=== PATIENT | male | born 1950 | race Caucasian/White ===

== ENCOUNTER 2023-04-18 12:19 | Emergency (ER) | payer MEDICARE ==
[~2023-04-18] VITALS: Ht 170.2 cm; Wt 85.8 kg
[~2023-04-18 12:19] MED LIST: FLO0.4C PO; SIMV-42 PO; UPAD15TA PO
[2023-04-18 12:42] VITALS: BP 192/149; PULSE 60; TEMP 98; O2SAT 100
[2023-04-18] MEDS ORDERED: ondansetron 4mg rapidly disintigrating tab PO ONE (12:50)
[2023-04-18] MEDS ORDERED: ketorolac trometh. 30mg/ml inj. IM ONE (12:50)
[2023-04-18 13:29] VITALS: RESP 18
[2023-04-18] MEDS: ketorolac trometh. 30mg/ml inj. IV ONE (13:29)
[2023-04-18] MEDS: ondansetron/PF 4mg/2ml inj IV ONE (13:29)
[2023-04-18] MEDS: normal saline 1000ML IV soln IVB ONE (13:30)
[2023-04-18 13:48] LABS: BASOPHILS % (AUTO) 0.2 % (0-1); EOSINOPHILS % (AUTO) 0.6 % (0-6); HEMATOCRIT 43.7 % (42.0-52.0); HEMOGLOBIN 14.5 g/dl (14.0-17.9); LYMPHOCYTES # (AUTO) 1.5 X10'3 (1.1-4.8); LYMPHOCYTES % (AUTO) 18.5 % (21-51); MEAN CORPUSCULAR HEMOGLOBIN 30.2 PG (27.0-31.0); MEAN CORPUSCULAR HGB CONC 33.2 g/dL (33.0-36.5); MEAN CORPUSCULAR VOLUME 90.8 FL (78-98); MONOCYTES # (AUTO) 0.7 X10'3 (0-0.9); MONOCYTES % (AUTO) 8.1 % (2-12); NEUTROPHILS # (AUTO) 5.9 X10'3 (1.8-7.7); NEUTROPHILS % (AUTO) 72.6 % (42-75); PLATELET COUNT 243 X10'3 (140-440); RED BLOOD COUNT 4.82 X10'6 (4.70-6.10); RED CELL DISTRIBUTION WIDTH 15.5 % (11.5-14.5); WHITE BLOOD COUNT 8.1 X10'3 (4.5-11.0)
[2023-04-18 14:00] LABS: ANION GAP 11 (8-16); BLOOD UREA NITROGEN 18 MG/DL (7-18); BUN/CREATININE RATIO 16.5 (10.0-20.0); CALCIUM 8.4 MG/DL (8.5-10.1); CHLORIDE 103 MMOL/L (99-107); CREATININE 1.09 MG/DL (0.60-1.10); GLUCOSE 105 MG/DL (70-104); LIPASE 32 U/L (16-77); POTASSIUM 3.8 MMOL/L (3.5-5.1); SODIUM 138 MMOL/L (135-145); TOTAL CARBON DIOXIDE 24.2 MMOL/L (24-32); eCRCL 59 ML/MIN; eGFR 67 ML/MIN
[2023-04-18 14:36] LABS: BILIRUBIN,URINE NEGATIVE (Neg); CLARITY,URINE CLEAR (Clear); COLOR,URINE YELLOW (Yellow); GLUCOSE, URINE NEGATIVE (Neg); KETONES,URINE 15 mg/dl (Neg); LEUKOCYTE ESTERASE ,URINE NEGATIVE (Neg); NITRITES, URINE NEGATIVE (Neg); OCCULT BLOOD,URINE NEGATIVE (Neg); PROTEIN,URINE NEGATIVE (Neg); UROBILINOGEN,URINE 0.2 E.U/dL (0.2-1.0)
[2023-04-18 14:45] LABS: UA COLLECTION TYPE NON-SPECIFIED
== END 2023-04-18 14:51 ==
LOC: ER 12:19
DX: N23 Unspecified renal colic (principal); N40.0 Benign prostatic hyperplasia without lower urinary tract symptoms; Z79.899 Other long term (current) drug therapy
CPT/HCPCS: 36415; 74176; 80048; 81003; 83690; 85025; 96361; 96374; 96375; 99285; J1885; J2405; J7030

== ENCOUNTER 2024-10-20 14:55 | Outpatient (CLI) | payer MEDICARE ==
[~2024-10-20 14:55] MED LIST changes: -FLO0.4C PO; +TAMS-55 PO
--- NOTE | 2024-10-20 16:21 | RADIOLOGY REPORT ---
EXAM: CT CT LOWER EXTREMITY INDICATION: CT L KNEE W/O CONTRAST WITH DEPUY TRUE MATCH PATIENT MATCHED CUTTING BLOCKS TECHNIQUE: Axial images of left hip, knee, ankle have been obtained along with coronal and sagittal r eformatted images. All CT scans at this facility use dose modulation, iterative reconstruction, and/o r weight based dosing when appropriate to reduce radiation dose to as low as reasonably achievable. COMPARISON: None FINDINGS: BONES: No CT evidence of an acute fracture or aggressive osseous lesion. MUSCLES: No abnormal attenuation. JOINT SPACES: Small knee joint effusion. TENDONS/LIGAMENTS: Intact. OTHER: Vascular calcifications. IMPRESSION: 1. Successful CT surgical planning protocol 2. Small knee joint effusion.
== END 2024-10-20 23:59 | disposition home or self-care (01) ==
LOC: RAD 14:55
PROVIDERS: ATTEND Orthopaedic Surgery
DX: M17.12 Unilateral primary osteoarthritis, left knee (principal); M25.462 Effusion, left knee
CPT/HCPCS: 73700

== ENCOUNTER 2024-12-16 05:31 | Observation (INO) | payer MEDICARE ==
[2024-12-07 09:05] LABS: MEAN PLATELET VOLUME 7.9 FL (7.4-10.4); PRE OP HEMATOCRIT 41.8 % (42.0-52.0); PRE OP HEMOGLOBIN 13.9 g/dL (14.0-17.9); PRE OP PLATELET COUNT 307 X10'3 (140-440); PRE OP WHITE BLOOD COUNT 6.6 10'3 (4.8-10.8); RED CELL DISTRIBUTION WIDTH 15.0 % (11.5-14.5)
[2024-12-07 09:22] LABS: CREATININE 1.12 MG/DL (0.60-1.10); PRE OP ALT 16 U/L (30-65); PRE OP ANION GAP 8 (8-16); PRE OP AST 33 U/L (10-37); PRE OP BILIRUB, TOTAL 0.5 MG/DL (0.0-1.0); PRE OP GLUCOSE 100 MG/DL (70-104); PRE OP POTASSIUM 4.0 MMOL/L (3.4-5.1); PRE OP SODIUM 139 MMOL/L (135-145); TOTAL CARBON DIOXIDE 25.2 MMOL/L (24-32); eGFR 64 ML/MIN
[~2024-12-16] VITALS: Ht 170.2 cm; Wt 88.7 kg
[2024-12-16] VITALS (21 sets, daily range): BP systolic 107–148; BP diastolic 55–85; PULSE 53–96; RESP 9–17; TEMP 96.2–98.4; O2SAT 94–100
[~2024-12-16 05:31] MED LIST changes: +OMEP20CA16 PO
[2024-12-16] MEDS: ringers solution, lacted 1,000 ML IV SCH ×2 (06:40→23:44)
[2024-12-16] MEDS: ceFAZolin 2gm/dext,iso 50mL 50 ML IV ONE (06:40)
[2024-12-16] MEDS: VANCOMYCIN/H2O 1.5g/300mL PB 300 ML IV ONE (06:40)
[2024-12-16] MEDS: tranexamic acid 1gm/0.7% sal. 100 ML IV ONE (06:40)
[2024-12-16] MEDS ORDERED: vancomycin 1,000mg inj ONE (06:41)
[2024-12-16] MEDS ORDERED: tetracaine 1% (10mg/ml) pres. free inj. ONE (07:11)
[2024-12-16] MEDS ORDERED: BUPIVACAINE liposomal/PF 13.3 MG/ML 10mL vial IM ONE (07:11)
[2024-12-16] MEDS ORDERED: BUPIVAcaine/PF 5 mg/ml 10ml ONE (07:11)
[2024-12-16] MEDS ORDERED: MIDAZolam 1mg/ml 10ml vial ONE (07:13)
[2024-12-16] MEDS ORDERED: fentaNYL/PF 50MCG/1 ML 2ML syringe ONE (07:14)
[2024-12-16] MEDS ORDERED: labetalol 20mg/4ml (5mg/ml) syringe IV PRN (07:30)
[2024-12-16] MEDS ORDERED: fentaNYL/PF 50MCG/1 ML 2ML syringe IV PRN ×2 (07:30)
[2024-12-16] MEDS ORDERED: ROPIVAcaine 0.2% (10 MG/5 ML) BOLUS INJECTION ADDCANAL PRN (07:30)
[2024-12-16] MEDS ORDERED: ondansetron/PF 4mg/2ml inj IV PRN (07:30)
[2024-12-16] MEDS ORDERED: hydrALAZINE 20mg/ml inj. IV PRN (07:30)
[2024-12-16] MEDS ORDERED: morphine 4 MG/ML inj SYRINge IV PRN (07:30)
[2024-12-16] MEDS ORDERED: propofol inj 20 ML IV ONE ×3 (08:20)
--- NOTE | 2024-12-16 09:05 | ANESTHESIA RECORDS ---
Nerve Block Providers to CC CC: VANGIE PATEL MD ~ Diagnosis: Nerve Block requested by: VANGIE PATEL MD Neuraxial/Peripheral Nerve Block requested for Post-operative analgesia by Physician above DIAGNOSIS: Post-operative pain. (Body Area) Shoulder: [ ] Arm: [ ] Hand: [ ] Hip: [ ] Knee: [ Left ] Ankle: [ ] Foot: [ ] Leg: [ ] Abdomen: [ ] Other: [ ] Post-operative pain expected to be/is inadequately managed by oral or IV medicines. Regional anesthetic expected to facilitate rehabilitation and/or discharge from facility. Other:[ _] Procedure Performed: Femoral / Saphenous: Left Other: Left IPACK Time out Done?: Yes Time of Time out: 08:33 Procedure Details: PROCEDURE DETAILS: Risks, benefits and alternatives explained Informed consent obtained, and patient wishes to proceed Conscious sedation with indicated monitors Patient positioned, pertinent anatomy defined, sterile technique used Needle used: [ ] 3 1/8 inch Stimuplex Ultra 22ga [ ] 4 inch Stimuplex Ultra 20ga [X ] 6 inch Stimuplex Ultra 20ga [X ] 6 inch, Quikbloc over the needle catheter set 20ga [ ] 4 inch Quikbloc over the needle catheter set 20ga [ ]Other: [ ] Loss of twitch @ [ ]mA [X ] Single Injection [X ] Catheter Ultrasound Guidance Used: [X ] Yes [ ] No Attempts:[_1,1 ] Medicines injected: [ ]Clonidine Amt:[ ] [ ]Dexamethasone Amt:[ ] [ X ]Ropivacaine Amt:[_0.5% 30 c.c for adductor canal block ] [ X ]Bupivacaine Amt:[_0.5% 10 c.c for IPACK block ] [ ]Lidocaine Amt:[ ] [ X ]Exparel 1.33%:[_10 c.c for IPACK block ] [ ]Epinephrine Amt[ ] [ ]Other: [ ] Intermittent aspiration during local anesthetic administration No symptoms of intraneural or intravenous injection Patient tolerated procedure well Comments Left ADDUCTOR CANAL CATHETER PLACEMENT: Left mid medial thigh is examined with Ultrasound and Adductor canal and vessels are identified and catheter over needle is placed in the canal. Ropivacaine is injected,spread is noted. Needle is removed catheter is secured. Ultrasound images captured,documented. Sterile dressings applied. On Q pump ordered. IPACK Block: Left posterior thigh is examined at the level of Lt medial femoral condyle. Popliteal vessels, Posterior knee capsule identified. Needle is placed in between posterior knee capsule,and popliteal vessels. local mix of exaprel+bupevacaine is injected. spread i snted, Ultrasound image is captured,documented. RADHA BEAVERS MD Dec 16, 2024 09:05
[2024-12-16] MEDS ORDERED: ePHEDrine 50MG/ML INJ. ONE (09:36)
[2024-12-16] MEDS: morphine 10mg/ml inj. IU ONE (10:00)
[2024-12-16] MEDS: vancomycin 1,000mg inj OGT ONE (10:03)
[2024-12-16] MEDS ORDERED: hydrALAZINE 20mg/ml inj. ONE (10:09)
[2024-12-16] MEDS ORDERED: ROPIVAcaine 0.5% (5mg/ml) 30ml vial ONE (10:10)
[2024-12-16] MEDS ORDERED: bisacodyl 10mg suppository rectal RC PRN (11:00)
[2024-12-16] MEDS ORDERED: HYDROmorphone inj. 0.5 MG/0.5 ML DISP.SYRIN IV PRN (11:00)
[2024-12-16] MEDS ORDERED: magnesium hydroxide 30ml (MOM) UD suspension PO PRN (11:00)
[2024-12-16] MEDS ORDERED: oxyCODONE IR 5mg (immed. release) tablet PO PRN (11:00)
[2024-12-16] MEDS ORDERED: PCA WASTE DOCUMENTATION 1 MG ML MC SCH (11:00)
--- NOTE | 2024-12-16 11:23 | OPERATIVE REPORT ---
Operative Report Providers to ~ Date of Procedure: Dec 16, 2024 Pre-Operative Diagnosis: Tricompartmental degenerative joint disease left knee Post-Operative Diagnosis SAME as PRE-Op Procedure Performed Left total knee arthroplasty Press-Fit Surgeon: Vangie Patel MD Wind Energy Engineer Garrison Hyde MD Anesthesiologist: Gen Sheldon Type of Anesthesia: Regional (Adductor canal block with on Q pump), Spinal Findings: Tricompartmental degenerative joint disease moderate to severe Complications None Prosthetics\Implants used: The pew attune knee system size five tibial base plate Press-Fit size five left femoral cementless cruciate retaining femoral component. 6 mm tibial insert fixed bearing medial stabilize. Press-Fit medialized patella 38 mm. Estimated Blood Loss: A proximally 200 mL Specimen Removed: Degenerative bone , meniscal tissue, and cruciate tissue Description of Procedure: Patient was taken to the operating room after I had obtained informed consent and signed his left knee. Preoperative prophylactic antibiotics per protocol were administered intravenously. Once in the operating room he was given a spinal anesthetic and then placed in the OR table in the supine position his right leg was placed in an SCD devices left leg was prepped and draped in usual sterile orthopaedic fashion after a upper thigh tourniquet was applied that was well padded. Surgical time-out was taken per protocol and the case was begun. Esmarch was used for exsanguination and tourniquet was insufflated. An IM P leg jade was used. Skin was protected with Ioban skin. Anterior incision measuring approximately 8-9 inches was made a medial parapatellar approach was accomplished electrocautery was used throughout the case for hemostasis the leg was in full extension of the patella was inverted to expose the patellar component inferior fat pad was resected for access was a significant degree of synovitis and moderate degree of degenerative changes of the patella osteotomy of the patella using a freehand technique was accomplished removing the minimal amount of bone. This is sized to a size 38 prepared for a Press-Fit implant. Patellar protector was placed and over this and the patella was subluxed laterally all the knee was placed into flexion expose in the distal femur. Distal femur had some surrounding osteophytes extensive grade 3 degenerative changes and significant synovitis lateral femoral condyle had near grade 4 chondromalacia. Medullary canal was established in the drill between the femoral condyles and a intramedullary deni this placed orthopedic alignment system for the distal femoral cut 9. This is set for a normal valgus alignment of 5. As the final products. Proximal tibial cut was now made after establishing medullary canal with a guidewire/guide deni placed down the medullary canal removing approximately 5 mm of bone from the medial tibial plateau resection of the posterior and anterior cruciate ligament was accomplished to aid in removing this bone from the tibial osteotomy. Resection of the medial and lateral meniscus was accomplished at this time. Flexion-extension gaps were found to be equal with a 6 mm insert. For one cutting block was placed in the distal femur anterior-posterior and chamfer cuts were made without difficulty in the trial component fit nicely bone quality was excellent. I elected to Press-Fit the femur and tibial component. The tibia was sized to a size five after being placed in a knee high flexion with posterior medial and lateral retractors protecting soft tissue and neurovascular structures the tibia was keel and drilled in prepared for placement of the definitive implant. Trial implants were placed allowing the need to be examined through a full range of motion and found to be stable with full extension and full flexion a central tech and patella. Definitive implants were then impacted into place starting with the tibial component followed by the femoral component purulent prior to placement of the definitive components the tourniquet was released hemostasis was checked with the and controlled with electrocautery after 50 minutes tourniquet was re-insufflated after an Esmarch was used to exsanguinate the leg with the completion of the case. Size 6 mm medial congruent tibial implant was used and he was found to have again a full range of motion quite stable with the patella tracking centrally patella implant was placed and a impression clamp for stabilization and patella. Pulsatile irrigation of 2 L of antibiotic impregnated normal saline and 1 L of antiseptic solution was used prior to closure Vistaseal was used for to support with hemostasis 1 g of vancomycin powder was placed intra-articularly for prophylaxis and he was placed in 30 of flexion while the medial parapatellar approach was closed with interrupted sutures of 2. Ethibond. Subcuticular closure was accomplished with 2-0 Vicryl and skin was closed with skin junior and sealed with Dermabond skin glue silk dressing was placed over the top of this as well as 4x4s Kerlix and loosely applied Avelino wrap. With the tourniquet released good distal pulses and capillary refill returned to the foot and toes patient was given an adductor canal block with a pump and then taken to the recovery room in stable condition there were no apparent perioperative complications Counts repoted as correct: Yes VANGIE PATEL MD Dec 16, 2024 11:23
--- NOTE | 2024-12-16 14:01 | RADIOLOGY REPORT ---
CLINICAL INDICATION: Postop TECHNIQUE: 2 radiographic views of the left knee were obtained. Comparison: None FINDINGS/IMPRESSION: Postsurgical changes from left knee arthroplasty.
[2024-12-16] MEDS: oxyCODONE IR 5mg (immed. release) tablet PO PRN (14:05)
[2024-12-16] MEDS: tranexamic acid inj. 900 MG in normal saline 100ml IV soln 100 ML IV ONE (15:45)
[2024-12-16] MEDS: ceFAZolin/D5W- 1GM premix 50 ML IV SCH (15:51)
[2024-12-16] MEDS: ondansetron/PF 4mg/2ml inj IV PRN (16:50)
[2024-12-16] MEDS: vancomycin/NS 1 GM ADD-VANTAGE 250 ML IV SCH (20:30)
--- NOTE | 2024-12-16 21:16 | CONSULTATION REPORT - RESIDENT ---
Consult Providers to CC Resident Creating Document: AVA TORRES RES History of Present Illness Reason for Admit\Complaint: Knee arthroplasty History of Present Illness 74 years old male with history of osteoarthritis, GERD admitted to the hospital for elective left total knee arthroplasty. Patient underwent the procedure by Dr. Hinojosa today without any complication. Internal Medicine team was consulted for follow-up. Patient is comfortably lying in the bed denied any chest pain shortness of breaths abdominal pain fever or chills. Pain is controlled with pain medication. Allergies: Coded Allergies: No Known Allergies (Unverified , 04/18/23) Home Medications Home Medications Active Reported Omeprazole 20 Mg Capsule.dr 1 Cap PO DAILY 30 Days Rinvoq ER (Upadacitinib) 15 Mg Tab.er.24h 1 Tab PO Q48H Zocor* (Simvastatin) 20 Mg Tablet 1 Tab PO HS 30 Days Flomax* (Tamsulosin HCl) 0.4 Mg Cap.sr.24h 1 Cap PO HS 30 Days Past Medical History Past Medical History Osteoarthritis GERD Past Surgical History Surgical History Comment TURP in 09/25 Reverse right total shoulder arthroplasty press-fit 2022 Family History Family History: FH: colon cancer (Father,) Past Social History Social History Comment Patient denied smoking cigarettes, marijuana or any other recreational drug Drink alcohol occasionally twice a week one glass of wine ROS ROS Constitutional: No fever, dizziness, weakness. no change in appetite/weight HEENT: No blurring of the vision, No sore throat, epistaxis, tinnitus Cardiovascular: no chest pain/discomfort, palpitations, no syncope. No pedal edema Respiratory: No sob, cough,, hemoptysis Gastrointestinal: no abdominal pain, no nausea, vomiting. no diarrhea, no cons tipation, melena. Genitourinary: No frquency, urgency, incontinence, nocturia. No dysuria, hematuria Musculoskeletal bilateral knee pain Endocrine: No polydipsia, polyuria. No heat or cold intolerance Neurologic: No headache, vertigo. No weakness, no numbness or tingling of extremities Psychiatric: No hallucinations/delusions, no anhedonia, no suicidal ideation Hematologic: No bleeding or bruises Exam Vitals: Vital Signs Date Time Temp Pulse Resp B/P (MAP) Pulse Ox O2 Delivery O2 Flow Rate FiO2 12/16/24 15:15 58 148/85 (106) 100 Room Air 12/16/24 15:00 18 12/16/24 12:30 96.2 12/16/24 11:50 0.0 General: General: Awake and Alert, no acute distress. HEENT: Conjunctiva pink, Sclera clear, Mucus Membranes moist. Neck: Supple without masses and tenderness. Resp: Lungs clear to auscultation bilaterally. Heart: Regular Rate and rhythm, normal S1 and S2 Abdomen: Soft and non tender no organomegaly Extremities: Left knee covered by dressing, pulses intact, and skin is warm bilateral lower extremity Skin: Warm and Dry. Neurological: Speech is clear, alert, and oriented x 4, no gross neurological deficits Additional Plan 74 years old male with history of osteoarthritis admitted for elective left knee arthroplasty Tricompartmental degenerative joint disease left knee Status post left total knee arthroplasty Press-Fit by Dr. Hinojosa on 12/16/2024 Patient tolerate procedure well with no complication Vital signs stable Continue monitoring Weight bearing as tolerate Ava Torres MD Internal Medicine Resident Patient evaluated using HIPPA complaint AV device Agree with the plan as discussed with the resident Christopher Michaels MD Date of Service: Dec 16, 2024 Billing Provider: CHRISTOPHER MICHAELS MD, [place], NYDIA Dec 16, 2024 21:16 CHRISTOPHER MICHAELS MD Dec 17, 2024 02:53
[2024-12-16] MEDS: ROPIVAcaine inj 200 MG, epiNEPHrine inj 0.6 MG, morphine 10mg/ml inj. 5 MG in normal sa... IU ONE (23:43)
[2024-12-16] MEDS: ROPIVAcaine 0.2%/PF PUMP/bolus 545 ML ADDCANAL SCH (23:44)
[2024-12-17 02:00] VITALS: BP 124/63; PULSE 69; RESP 16; TEMP 99
[2024-12-17 06:00] VITALS: BP 126/78; PULSE 71; RESP 18; TEMP 98.9; O2SAT 94
[2024-12-17 06:13] LABS: CREATININE 1.08 MG/DL (0.60-1.10); TOTAL CARBON DIOXIDE 26.5 MMOL/L (24-32); eCRCL 58 ML/MIN; eGFR 67 ML/MIN
[2024-12-17 06:27] LABS: MEAN PLATELET VOLUME 8.2 FL (7.4-10.4); RED CELL DISTRIBUTION WIDTH 15.0 % (11.5-14.5)
[2024-12-17 10:00] VITALS: BP 124/64; PULSE 72; RESP 18; TEMP 98.2; O2SAT 96
[2024-12-17] MEDS: pantoprazole 40mg Tablet.DR PO SCH (10:05)
[2024-12-17] MEDS ORDERED: OXYC-658 PO (10:39)
[2024-12-17] MEDS ORDERED: ASPI-1 PO (10:39)
[2024-12-17] MEDS ORDERED: POLY17PO10 PO (15:54)
[2024-12-17] MEDS ORDERED: ACET-1008 PO (15:55)
--- NOTE | 2024-12-17 19:03 | DISCHARGE SUMMARY ---
Discharge Summary Providers to CC ~ Discharge Summary Admission Diagnosis: Degenerative joint disease left knee tricompartmental Hospital Course DATE OF ADMISSION: December 16, 2024 DATE OF DISCHARGE:December 17, 2024 CBC testing done on December 17, 2024 WBC 9.2 hemoglobin 12.1 hematocrit 35.9 platelet count 241. Serum chemistry done on December 17, 2024 sodium 135 potassium 4.1 creatinine 1.08 GFR 67 normal liver enzymes. KNEE LIMITED (AP/LAT)FINDINGS/IMPRESSION: Postsurgical changes from left knee arthroplasty. Discharge Diagnosis\Comment: Tricompartmental degenerative joint disease left knee Operations\Procedures: Status post left total knee arthroplasty Consultants: Dr Patel Complications: None Condition on DC: Stable New Medications: Polyethylene Glycol 3350* (Miralax*) 1 Packet Packet 1 PACKET PO HS for 10 Days, #10 PACKET Aspirin (Aspirin) 325 Mg Tablet 1 TAB PO Q24H@0830 for 30 Days, #30 TAB Oxycodone Hcl IR* (Oxycodone IR*) 5 Mg Tablet 5 MG PO Q8H PRN for moderate or severe pain 4-10 for 7 Days, #20 TAB Changed Medications: Acetaminophen (Tylenol) 325 Mg Tablet 1 TAB PO Q6H PRN for mild pain 1-3 for 10 Days, #30 TAB (Changed from: QDAY PRN; 30) Continued Medications: Omeprazole (Omeprazole) 20 Mg Capsule.dr 1 CAP PO DAILY for 30 Days, #30 CAP 0 Refills Simvastatin* (Zocor*) 20 Mg Tablet 1 TAB PO HS for 30 Days, #30 TAB Tamsulosin Hcl* (Flomax*) 0.4 Mg Cap.sr.24h 1 CAP PO HS for 30 Days, #30 CAP Upadacitinib (Rinvoq ER) 15 Mg Tab.er.24h 1 TAB PO Q48H Discharge Summary: 74 years old male with history of osteoarthritis admitted for elective left knee arthroplasty Tricompartmental degenerative joint disease left knee Status post left total knee arthroplasty Press-Fit by Dr. Patel on 12/16/2024 Patient tolerate procedure well with no complication Vital signs stable Continue monitoring Weight bearing as tolerate Physical therapy evaluation done during hospitalization and physical therapy cleared the patient for home discharge Patient is feeling better he has been afebrile and getting discharged home in stable condition. Patient is seen and examined on the day of discharge. All questions and queries answered to the best of my professional medical knowledge. I heard patient's concerns and address appropriately. Patient was cleared by Physical therapy team for home discharge . facility maintenance manager involved in patient's discharge plan. Discharge instructions provided to the patientFOLLOW-UP WITH DR. PATEL IN OUTPATIENT SETTING AND CONTACT HIS OFFICE FOR APPOINTMENT. FURTHER SURGICAL CARE FOR LEFT TOTAL KNEE ARTHROPLASTY PER DR. PATEL. ACTIVITY TOLERATED. PLEASE PROVIDE FALL PRECAUTIONS DOCUMENT. General: Awake and Alert, no acute distress. HEENT: Conjunctiva pink, Sclera clear, Mucus Membranes moist. Neck: Supple without masses and tenderness. Resp: Lungs clear to auscultation bilaterally. Heart: Regular Rate and rhythm, normal S1 and S2 Abdomen: Soft and non tender no organomegaly Extremities: Left knee covered by dressing, pulses intact, and skin is warm bilateral lower extremity Skin: Warm and Dry. Neurological: Speech is clear, alert, and oriented x 4, no gross neurological deficits *Problems/Diagnosis: (1) Degenerative joint disease of shoulder, right Status: Resolved Total Time Spent on D/C: > 30 Minutes Date of Service: Dec 17, 2024 Billing Provider: REINA CONTRERAS MD Common Visit Codes: 39217-LCC/OBS DISCH DAY >30min REINA CONTRERAS MD Dec 17, 2024 19:03
[2024-12-18] MEDS ORDERED: UPADACITINIB 15 MG PO SCH (08:00)
== END 2024-12-17 16:25 | disposition home health service (06) ==
LOC: UNDOADMIN 05:31 → PAS IN 05:31 → ORTHO 4S 05:31 → PAS IN 12:19 → ORTHO 4S 12:19
PROVIDERS: ADMIT Orthopaedic Surgery; ATTEND Internal Medicine
DX: M17.12 Unilateral primary osteoarthritis, left knee (principal); M65.90 Unspecified synovitis and tenosynovitis, unspecified site; I10 Essential (primary) hypertension; E78.5 Hyperlipidemia, unspecified; N40.0 Benign prostatic hyperplasia without lower urinary tract symptoms; Z79.899 Other long term (current) drug therapy; Z98.890 Other specified postprocedural states
CPT/HCPCS: 27447; 73560; 80053; 82948; 96365; 96366; 96367; 96368; 96375; 97161; A4215; C1776; G0378; J0665; J0666; J2795; J3375; J3490; J7120; 36415; 85025; 87081; 97116; 97530; A6258; A6449; A6454; C1758; C9250; J0360; J0690; J2250; J2274; J2405; J2704; J3010; J3373